=== PATIENT | male | born 1955 | race Caucasian/White ===

== ENCOUNTER → 2022-03-13 11:10 | Outpatient (BNVA) | payer OTHER, SELFPAY | PROVIDERS: Visit Provider Student in an Organized Health Care Education/Training Program | DX: M72.0 Palmar fascial fibromatosis [Dupuytren] (principal); M79.642 Pain in left hand | CPT/HCPCS: 99203 ==

== ENCOUNTER → 2022-11-10 09:33 | Outpatient (BNVA) | payer OTHER, SELFPAY | PROVIDERS: Visit Provider Podiatrist Foot & Ankle Surgery | DX: L60.8 Other nail disorders (principal) | CPT/HCPCS: 99203 ==

== ENCOUNTER 2023-06-25 07:34 | Outpatient (CLI) | payer OTHER, SELFPAY ==
--- NOTE | 2023-06-25 | ECG_ITS ---
[facility] Test Date: 2023-06-25 Pat Name: Barrett Thrasher Department: Room: Gender: Male Wort Extractor: Zayra Lacy : 1955 Requested By: Lexii Ren Order Number: [id number] Salma MD: Fadi Damon M.D. Interpretive Statements NAME OF STUDY: LEXISCAN SESTAMIBI STRESS TEST INDICATION: SMITH, PROCEDURE: At the baseline, the EKG revealed normal sinus rhythm with poor R wave progression. Normal ST Ts. The baseline heart was 63 bpm with a blood pressue of 126/81 mm of Hg Lexiscan was infused over a period of 20 seconds. A total of 0.4 milligrams of Lexiscan was infused. The stress phase was continued for a total of 5 minutes. Heart rate at the end of the stress phase was 87 bpm with a blood pressure 152/75 mm of Hg. The EKG at the peak infusion revealed no significant changes. Sestamibi was injected 20 seconds after the Lexiscan infusion. Heart rate at the end of the recovery phase was 81 bpm with a blood pressure of 133/96 mm of Hg. CONCLUSION: 1. No significant EKG changes with the LexiScan infusion 2. No LexiScan induced chest pain or cardiac arrhythmia 3. Normal blood pressure and heart rate response 4. Sestamibi/sestamibi perfusion scan pending; see separate report. Electronically Signed On 07-05-2023 17:17:46 SCHEDULING SPECIALIST by Fadi Damon M.D. [email or web address]
--- NOTE | 2023-06-25 08:10 | NMCV_ITS ---
NM garry perf SPECT r/s* [id number] Barrett Thrasher Age: 68 Gender: M : 1955 Exam Date: 06/25/2023 08:10 Ordering Phys: Lexii Ren MD Technologist: MARCELLUS Rooney Exam Location: [facility] Indications: DYSPNEA ON EXERTION STRESS TEST Please see separate stress test report in [facility] for full findings IMAGE PROTOCOL Rest/Stress 1 Lexiscan Day Radiopharmaceutical Dose (mCi) Administration Site Administered by Rest: Tc-99m 10.9 IV Jacklyn Flores TOBACCO BLENDER Sestamibi Stress:Tc-99m 33.0 IV Jacklyn Flores, TOBACCO BLENDER Sestamibi Rest: 25-Jun-2023 60 Discovery 630 Stress: 25-Jun-2023 30 Discovery 630 0.4mg Lexiscan. Supine position only as patient was unable to lay prone. SPECT RESULTS Technical Quality: Excellent Raw Data Analysis: Normal Image Corrections: No attenuation or motion correction applied Summed Stress Score: 2 Summed Rest Score: 1 Summed Difference Score: 2 PERFUSION FINDINGS Small area of slightly decreased aseptic was noted in the apical inferior and LV apex. Significant reversibility was noted at rest FUNCTIONAL RESULTS (calculated via Gated SPECT) Stress Image LV EF (%): 54 Stress EDV (mL):115 TID: 1.24 Stress ESV (mL):53 FUNCTIONAL FINDINGS: Segmental wall motion analysis revealed no gross wall motion abnormalities. IMPRESSIONS 1. Myocardial perfusion imaging revealing a very small area of reversible defect in the involving the apical inferior and LV apex suggesting ischemia in the distribution of the right coronary artery 2. Normal LV ejection fraction 54%. 3. LV wall motion analysis revealing no gross wall motion abnormalities. 4. The LV volume is found to be minimally elevated, end-systolic volume of 53 ml. No similar previous studies are available for comparison Dr Fadi Damon MD [facility] (Electronically Signed) Final Date: 25 June 2023 14:31 S
[2023-06-25] MEDS: regadenoson 0.4 Mg/5 ml Syringe IVP (09:20)
[2023-06-25 09:37] VITALS: BP 133/98; PULSE 80
== END 2023-06-25 07:35 | disposition home or self-care (01) ==
LOC: CDL 07:36
PROVIDERS: PCP Family Medicine; Visit Provider Family Medicine
DX: R06.09 Other forms of dyspnea (principal); R93.1 Abnormal findings on diagnostic imaging of heart and coronary circulation
CPT/HCPCS: 36415; 78452; 93017; 96374; A9500; J2785

== ENCOUNTER → 2023-09-09 12:43 | Outpatient (BNVA) | payer OTHER, SELFPAY | PROVIDERS: PCP Family Medicine; Visit Provider Internal Medicine | DX: R07.9 Chest pain, unspecified (principal); R06.09 Other forms of dyspnea; I10 Essential (primary) hypertension; R94.31 Abnormal electrocardiogram [ECG] [EKG] | CPT/HCPCS: 93005; 99204 ==